=== PATIENT | female | born 1985 | race African-American/Black ===

== ENCOUNTER 2024-11-09 22:05 | Emergency (ER) | payer BC, OTHER ==
[~2024-11-09] VITALS: Ht 160 cm; Wt 70.3 kg
[2024-11-09] MEDS: KETOROLAC TROMETHAMINE INJ 30 MG/ML VIAL IV ONE (23:47)
[2024-11-10] MEDS ORDERED: IOHEXOL-300 100 ML VIAL IV ONE (00:26)
[2024-11-10] MEDS ORDERED: IV NS 0.9% 500 ML IV ONE (00:27)
[2024-11-10] MEDS ORDERED: CT SWABBABLE VALVE TRANS SET 1 EA INFUS.SET MC ONE (00:31)
[2024-11-10] MEDS ORDERED: KETOROLAC TROMETHAMINE INJ 30 MG/ML VIAL ONE (01:12)
[2024-11-10] MEDS ORDERED: IBUPROFEN 600 MG TABLET ONE (01:30)
[2024-11-10] MEDS: IBUPROFEN 600 MG TABLET PO ONE (01:30)
[2024-11-10] MEDS: KETOROLAC TROMETHAMINE INJ 30 MG/ML VIAL IM ONE (01:33)
[2024-11-10 02:02] LABS: APPEARANCE,URINE CLEAR (CLEAR); BILIRUBIN,URINE NEGATIVE (NEGATIVE); BLOOD, URINE NEGATIVE Ery/uL (NEGATIVE); COLOR,URINE YELLOW (YELLOW); KETONES,URINE NEGATIVE (NEGATIVE); LEUKOCYTE ESTERASE ,URINE NEGATIVE (NEGATIVE); NITRITE, URINE NEGATIVE (NEGATIVE); PH,URINE 6.5 (5.0-8.0); PROTEIN,URINE NEGATIVE (NEGATIVE); UGLUCOSE NEGATIVE (NEGATIVE); UROBILINOGEN,URINE 0.2 EU/dL (0.2)
[2024-11-10 02:15] LABS: AMPHETAMINE, URINE NEGATIVE (NEGATIVE); BARBITURATE, URINE NEGATIVE (NEGATIVE); BENZODIAZEPINE, URINE NEGATIVE (NEGATIVE); CANNABINOID, URINE POSITIVE (NEGATIVE); COCCAINE, URINE NEGATIVE (NEGATIVE); OPIATE, URINE NEGATIVE (NEGATIVE); PHENCYCLIDINE SCREEN,URINE NEGATIVE (NEGATIVE)
[2024-11-10 02:18] LABS: PREGNANCY TEST URINE QUAL NEGATIVE (NEGATIVE)
[2024-11-10] MEDS ORDERED: NAPR-1164 PO (03:08)
[2024-11-10 07:37] VITALS: BP 136/80; TEMP 98.9; O2SAT 98
== END 2024-11-10 07:37 | disposition home or self-care (01) ==
LOC: ER 22:12
DX: S13.9XXA Sprain of joints and ligaments of unspecified parts of neck, initial encounter (principal); S00.83XA Contusion of other part of head, initial encounter; S20.219A Contusion of unspecified front wall of thorax, initial encounter; Z79.899 Other long term (current) drug therapy; V43.52XA Car driver injured in collision with other type car in traffic accident, initial encounter; Y93.89 Activity, other specified; Y92.415 Exit ramp or entrance ramp of street or highway as the place of occurrence of the external cause; Y99.8 Other external cause status
CPT/HCPCS: 99285; 72125; 70450; 80307; 71250; 74176; 84703; 81003; J1885; J7040; Q9967